=== PATIENT | male | born 1970 | race Caucasian/White ===

== ENCOUNTER 2024-04-20 09:55 | Inpatient (IN) | payer MEDICAID ==
[~2024-04-20] VITALS: Ht 182.9 cm; Wt 114.4 kg
[2024-04-20 12:11] VITALS: BP 143/62; TEMP 97.5; O2SAT 96
[2024-04-20] MEDS ORDERED: MAALOX 30 ML SUSP *UDC PO PRN (12:55)
[2024-04-20] MEDS ORDERED: CLOP75TA2 PO (14:54)
[2024-04-20] MEDS ORDERED: METO1TAB87 PO (14:54)
[2024-04-20] MEDS ORDERED: NIFE-3 PO (14:54)
[2024-04-20] MEDS ORDERED: ASPI81CH33 PO (14:54)
[2024-04-20] MEDS ORDERED: HOME MED LIST COMPLETE! XX SCH (14:55)
[2024-04-20] MEDS ORDERED: DICLOFENAC EPOLAMINE 1.3% PATCH TOP SCH (18:00)
[2024-04-20] MEDS: METOPROLOL TART 25 MG TABLET PO SCH (19:49)
[2024-04-20 20:00] VITALS: BP 182/100; TEMP 97.8; O2SAT 97
[2024-04-20] MEDS: ACETAMINOPHEN TAB 650MG DOSE (2X325MG) PO PRN (20:19)
[2024-04-20] MEDS: HEPARIN SOD (PORCINE) 5000UNITS/ML 1ML VIAL/SYRINGE SQ SCH (20:19)
[2024-04-20] MEDS: RAMELTEON 8 MG TAB (ROZEREM) PO PRN (20:19)
[2024-04-20] MEDS: DICLOFENAC EPOLAMINE 1.3% PATCH TOP SCH (20:21)
[2024-04-20 21:00] VITALS: BP 141/84
[2024-04-21] MEDS ORDERED: UNRESOLVED CLARIFICATION ENTRY XX SCH (00:01)
[2024-04-21 04:00] VITALS: BP 146/82; TEMP 97; O2SAT 99
[2024-04-21 06:03] LABS: HEMATOCRIT 36.9 % (42.0-52.0); HEMOGLOBIN 12.2 g/dl (13.5-17.5); MEAN CORPUSCULAR HEMOGLOBIN 30.1 pg (27.0-33.0); MEAN CORPUSCULAR HGB CONC 33.1 g/dl (32.0-36.5); MEAN CORPUSCULAR VOLUME 91.1 fl (80.0-96.0); PLATELET COUNT, AUTOMATED 320 10^3/uL (150-450); RED BLOOD COUNT 4.05 10^6/uL (4.30-6.10); WHITE BLOOD COUNT 7.6 10^3/uL (4.0-10.0)
[2024-04-21 06:31] LABS: ALBUMIN 2.8 G/DL (3.2-5.2); BILIRUBIN,TOTAL 0.5 MG/DL (0.3-1.2); CALCIUM LEVEL 9.1 MG/DL (8.5-10.1); CREATININE FOR GFR 1.95 MG/DL (0.70-1.30); GLOMERULAR FILTRATION RATE 38.4 (>56); POTASSIUM SERUM 4.4 MMOL/L (3.5-5.1); TOTAL PROTEIN 6.2 G/DL (5.7-8.2)
[2024-04-21 06:32] LABS: FOLATE 8.5 NG/ML (>5.4)
[2024-04-21] MEDS: CLOPIDOGREL 75 MG TAB PO SCH (08:16)
[2024-04-21] MEDS: ASPIRIN 81MG ENTERIC TABLET PO SCH (08:16)
[2024-04-21] MEDS: NIFEdipine 30MG XL TAB PO SCH (08:17)
[2024-04-21 12:00] VITALS: BP 145/87; TEMP 97; O2SAT 100
[2024-04-21] MEDS: THIAMINE 100 MG TAB PO SCH (12:49)
[2024-04-21] MEDS: MULTIVITAMINS/MINERALS THERAP 1 TAB PO SCH (12:50)
[2024-04-21] MEDS: FOLIC ACID 1MG TAB PO SCH (12:50)
[2024-04-21] MEDS ORDERED: E-Z-PAQUE 96% w/w SUSP 176GM BTL As Ordered ONE (13:32)
[2024-04-21] MEDS ORDERED: VARIBAR PUDDING 40% w/v 230ML TUBE As Ordered ONE (13:32)
[2024-04-21] MEDS ORDERED: VARIBAR NECTAR 40% w/v 240ML SUSP BTL As Ordered ONE (13:32)
[2024-04-21] MEDS ORDERED: BARIUM SULFATE 700 MG TABLET (E-Z-DISK) As Ordered ONE (13:32)
[2024-04-21 20:00] VITALS: BP 135/88; TEMP 97.6; O2SAT 98
[2024-04-22 04:00] VITALS: BP 160/74; TEMP 97.3; O2SAT 96
[2024-04-22] MEDS: CYCLOBENZAPRINE 5MG TABLET PO PRN (07:14)
[2024-04-22 12:00] VITALS: BP 150/65; TEMP 97.2; O2SAT 100
[2024-04-22 20:00] VITALS: BP 141/85; TEMP 97.6; O2SAT 98
[2024-04-23 04:00] VITALS: BP 159/90; TEMP 98; O2SAT 95
[2024-04-23 08:11] VITALS: BP 150/100
[2024-04-23 12:00] VITALS: BP 156/83; TEMP 97.7; O2SAT 97
[2024-04-23 20:00] VITALS: BP 152/84; TEMP 97.7; O2SAT 98
[2024-04-24 04:00] VITALS: BP 142/90; TEMP 97.6; O2SAT 94
[2024-04-24 07:06] LABS: HEMATOCRIT 34.8 % (42.0-52.0); HEMOGLOBIN 11.6 g/dl (13.5-17.5); MEAN CORPUSCULAR HEMOGLOBIN 30.4 pg (27.0-33.0); MEAN CORPUSCULAR HGB CONC 33.3 g/dl (32.0-36.5); MEAN CORPUSCULAR VOLUME 91.1 fl (80.0-96.0); PLATELET COUNT, AUTOMATED 352 10^3/uL (150-450); RED BLOOD COUNT 3.82 10^6/uL (4.30-6.10); WHITE BLOOD COUNT 5.5 10^3/uL (4.0-10.0)
[2024-04-24 07:42] LABS: CALCIUM LEVEL 9.2 MG/DL (8.5-10.1); CREATININE FOR GFR 1.7 MG/DL (0.70-1.30); GLOMERULAR FILTRATION RATE 44.9 (>56); POTASSIUM SERUM 4.5 MMOL/L (3.5-5.1)
[2024-04-24] MEDS: MIRALAX *UNIT DOSE* 17GM PACKET PO PRN (08:10)
[2024-04-24 12:00] VITALS: BP 150/88; TEMP 98.2; O2SAT 99
[2024-04-24 19:53] VITALS: BP 163/94; TEMP 97.9; O2SAT 96
[2024-04-24] MEDS: DOCUSATE SODIUM 100MG CAPSULE PO SCH (20:24)
[2024-04-24] MEDS: FAMOTIDINE 20 MG TAB PO SCH (20:24)
[2024-04-24] MEDS: **hydrALAZINE** 10 MG TAB PO PRN (20:25)
[2024-04-24] MEDS: SENNA 8.6 MG TAB (SENOKOT) PO SCH (20:25)
[2024-04-25 04:42] VITALS: BP 141/85; TEMP 98.5; O2SAT 95
[2024-04-25 12:00] VITALS: BP 152/88; TEMP 97.4; O2SAT 100
[2024-04-25 20:00] VITALS: BP 155/95; TEMP 97.8; O2SAT 97
[2024-04-26 04:00] VITALS: BP 170/100; TEMP 97.1; O2SAT 96
[2024-04-26 05:00] VITALS: BP 148/82
[2024-04-26 06:43] LABS: HEMATOCRIT 33.8 % (42.0-52.0); HEMOGLOBIN 11.3 g/dl (13.5-17.5); MEAN CORPUSCULAR HEMOGLOBIN 30.2 pg (27.0-33.0); MEAN CORPUSCULAR HGB CONC 33.4 g/dl (32.0-36.5); MEAN CORPUSCULAR VOLUME 90.4 fl (80.0-96.0); PLATELET COUNT, AUTOMATED 356 10^3/uL (150-450); RED BLOOD COUNT 3.74 10^6/uL (4.30-6.10); WHITE BLOOD COUNT 5.3 10^3/uL (4.0-10.0)
[2024-04-26 07:24] VITALS: BP 140/90
[2024-04-26 12:00] VITALS: BP 147/78; TEMP 97.6; O2SAT 96
[2024-04-26 20:00] VITALS: BP 158/88; TEMP 97.3; O2SAT 99
[2024-04-27 04:00] VITALS: BP 164/100; TEMP 98; O2SAT 96
[2024-04-27 07:51] VITALS: BP 144/85
[2024-04-27 12:00] VITALS: BP 160/92; TEMP 97.8; O2SAT 98
[2024-04-27 20:00] VITALS: BP 160/96; TEMP 97.9; O2SAT 96
[2024-04-27] MEDS: LOSARTAN 25 MG TAB PO SCH (20:37)
[2024-04-28 04:00] VITALS: BP 129/72; TEMP 97.5; O2SAT 98
[2024-04-28 13:29] VITALS: BP 144/79; TEMP 97.7; O2SAT 98
[2024-04-28 20:00] VITALS: BP 161/93; TEMP 98.4; O2SAT 97
[2024-04-28] MEDS: ENOXAPARIN 40MG/0.4ML SYRINGE (J1650 PER 10MG) SC SCH (20:16)
[2024-04-29 04:00] VITALS: BP 133/81; TEMP 97.8; O2SAT 98
[2024-04-29 12:00] VITALS: BP 168/89; TEMP 98; O2SAT 98
[2024-04-29 20:00] VITALS: BP 220/120; TEMP 98.1; O2SAT 99
[2024-04-29 21:10] VITALS: BP 186/116
[2024-04-29] MEDS: **hydrALAZINE** 10 MG TAB PO ONE (21:51)
[2024-04-29 23:00] VITALS: BP 198/110
[2024-04-29 23:00] LABS: BASO # 0.1 10^3/uL (0.0-0.2); BASO % 1.3 % (0.0-1.0); EOS # 0.5 10^3/uL (0.0-0.5); EOS % 9.5 % (0.0-3.0); HEMATOCRIT 35.7 % (42.0-52.0); HEMOGLOBIN 11.8 g/dl (13.5-17.5); LYMPH # 1.2 10^3/uL (1.5-5.0); LYMPH % 21.9 % (24.0-44.0); MEAN CORPUSCULAR HGB CONC 33.1 g/dl (32.0-36.5); MEAN CORPUSCULAR VOLUME 90.8 fl (80.0-96.0); MONO # 0.6 10^3/uL (0.0-0.8); MONO % 11.6 % (2.0-8.0); NEUTROPHILS # 2.9 10^3/uL (1.5-8.5); NEUTROPHILS % 55.1 % (36.0-66.0); PLATELET COUNT, AUTOMATED 356 10^3/uL (150-450); RED BLOOD COUNT 3.93 10^6/uL (4.30-6.10); WHITE BLOOD COUNT 5.2 10^3/uL (4.0-10.0)
[2024-04-29 23:29] LABS: ALBUMIN 3.4 G/DL (3.2-5.2); BILIRUBIN,TOTAL 0.3 MG/DL (0.3-1.2); CALCIUM LEVEL 9.1 MG/DL (8.5-10.1); CREATININE FOR GFR 1.88 MG/DL (0.70-1.30); MAGNESIUM LEVEL 1.8 MG/DL (1.8-2.4); TOTAL PROTEIN 6.4 G/DL (5.7-8.2)
[2024-04-29 23:39] LABS: AMPHETAMINES LEVEL URINE NEGATIVE (NEGATIVE); BARBITURATES URINE NEGATIVE (NEGATIVE)
[2024-04-29 23:40] LABS: CANNABINOIDS URINE NEGATIVE (NEGATIVE); COCAINE METABOLITE URINE NEGATIVE (NEGATIVE); METHADONE URINE NEGATIVE (NEGATIVE); OPIATES URINE NEGATIVE (NEGATIVE); PHENCYCLIDINE URINE NEGATIVE (NEGATIVE)
[2024-04-30 00:10] LABS: BENZODIAZEPINES URINE POSITIVE (NEGATIVE)
[2024-04-30 04:00] VITALS: BP 162/89; TEMP 97.4; O2SAT 99
[2024-04-30 12:00] VITALS: BP 176/99; TEMP 98.5; O2SAT 98
[2024-04-30 20:00] VITALS: BP 180/110; TEMP 98.6; O2SAT 98
[2024-05-01 04:00] VITALS: BP 162/88; TEMP 97.4; O2SAT 99
[2024-05-01 07:30] VITALS: BP 140/90
[2024-05-01 12:00] VITALS: BP 148/83; TEMP 97.5; O2SAT 97
[2024-05-01 20:00] VITALS: BP 182/110; TEMP 98.2; O2SAT 98
[2024-05-01] MEDS: **hydrALAZINE HCL** 25 MG TAB PO PRN (20:10)
[2024-05-01 21:14] VITALS: BP 148/76
[2024-05-02 04:00] VITALS: BP 141/89; TEMP 98; O2SAT 98
[2024-05-02 12:00] VITALS: BP 154/86; TEMP 98.1; O2SAT 99
[2024-05-02] MEDS: **hydrALAZINE** 10 MG TAB PO SCH (16:31)
[2024-05-02 20:00] VITALS: BP 161/90; TEMP 97.8; O2SAT 97
[2024-05-02] MEDS: **hydrALAZINE** 50 MG TAB PO PRN (20:23)
[2024-05-03 04:00] VITALS: BP 154/86; TEMP 98.9; O2SAT 98
[2024-05-03] MEDS: LOSARTAN 50MG TABLET PO SCH (08:23)
[2024-05-03] MEDS: NIFEdipine 30MG XL TAB PO SCH (08:23)
[2024-05-03 12:00] VITALS: BP 152/92; TEMP 98.6; O2SAT 99
[2024-05-03 12:38] LABS: BASO # 0.1 10^3/uL (0.0-0.2); BASO % 1.1 % (0.0-1.0); EOS # 0.4 10^3/uL (0.0-0.5); EOS % 5.5 % (0.0-3.0); HEMOGLOBIN 12.6 g/dl (13.5-17.5); LYMPH % 12.5 % (24.0-44.0); MEAN CORPUSCULAR HEMOGLOBIN 30.1 pg (27.0-33.0); MEAN CORPUSCULAR HGB CONC 33.2 g/dl (32.0-36.5); MEAN CORPUSCULAR VOLUME 90.9 fl (80.0-96.0); NEUTROPHILS # 5.5 10^3/uL (1.5-8.5); NEUTROPHILS % 68.5 % (36.0-66.0); PLATELET COUNT, AUTOMATED 395 10^3/uL (150-450); RED BLOOD COUNT 4.18 10^6/uL (4.30-6.10); WHITE BLOOD COUNT 8.1 10^3/uL (4.0-10.0)
[2024-05-03 13:05] LABS: CALCIUM LEVEL 10.1 MG/DL (8.5-10.1); CREATININE FOR GFR 1.77 MG/DL (0.70-1.30); GLOMERULAR FILTRATION RATE 42.9 (>56); POTASSIUM SERUM 4.3 MMOL/L (3.5-5.1)
[2024-05-03] MEDS ORDERED: NIFE1TAB52 PO (13:23)
[2024-05-03] MEDS ORDERED: Multivitamins PO (13:23)
[2024-05-03] MEDS ORDERED: SENO8.6T5 PO (13:23)
[2024-05-03] MEDS ORDERED: METO1TAB87 PO (13:23)
[2024-05-03] MEDS ORDERED: MIRA33506 PO (13:23)
[2024-05-03] MEDS ORDERED: CLOP75TA2 PO (13:23)
[2024-05-03] MEDS ORDERED: RAME8TAB2 PO (13:23)
[2024-05-03] MEDS ORDERED: CYCL5TAB PO (13:23)
[2024-05-03] MEDS ORDERED: THIA100TA PO (13:23)
[2024-05-03] MEDS ORDERED: ACET1TAB55 PO (13:23)
[2024-05-03] MEDS ORDERED: FAMO20TA PO (13:23)
[2024-05-03] MEDS ORDERED: LOSA-528 PO (13:23)
[2024-05-03] MEDS ORDERED: COLA100C5 PO (13:23)
[2024-05-03] MEDS ORDERED: FOLI1TAB11 PO (13:23)
[2024-05-03 20:00] VITALS: BP 134/76; TEMP 98.6; O2SAT 99
[2024-05-04 04:00] VITALS: BP 148/82; TEMP 98.3; O2SAT 98
[2024-05-04 08:18] VITALS: BP 156/77
== END 2024-05-04 12:05 | disposition home health service (06) | DRG 45 ==
LOC: M PM&R 12:11
PROVIDERS: ADMIT Student in an Organized Health Care Education/Training Program; ATTEND Physical Medicine & Rehabilitation
DX: I63.9 Cerebral infarction, unspecified (principal); I13.0 Hypertensive heart and chronic kidney disease with heart failure and stage 1 through stage 4 chronic kidney disease, or unspecified chronic kidney disease; I50.22 Chronic systolic (congestive) heart failure; N18.30 Chronic kidney disease, stage 3 unspecified; R13.10 Dysphagia, unspecified; G81.11 Spastic hemiplegia affecting right dominant side; E66.9 Obesity, unspecified; Z74.1 Need for assistance with personal care; Z74.09 Other reduced mobility; R53.1 Weakness; R47.1 Dysarthria and anarthria; F10.10 Alcohol abuse, uncomplicated; Z71.41 Alcohol abuse counseling and surveillance of alcoholic; F14.10 Cocaine abuse, uncomplicated; Z71.51 Drug abuse counseling and surveillance of drug abuser; Z79.82 Long term (current) use of aspirin; Z79.899 Other long term (current) drug therapy; Z11.52 Encounter for screening for COVID-19; M25.561 Pain in right knee; M25.562 Pain in left knee; Z68.30 Body mass index [BMI] 30.0-30.9, adult; R47.81 Slurred speech